=== PATIENT | male | born 1950 | race Caucasian/White ===

== ENCOUNTER 2023-05-02 06:11 | Day surgery (SDC) | payer MEDICARE, SELFPAY ==
[2023-05-02 06:30] VITALS: BMI 35.2
[2023-05-02 06:35] VITALS: BP 130/90; PULSE 86; RESP 16; TEMP 36.9; O2SAT 92
[2023-05-02] MEDS: LACTATED RINGERS 1000 ML 1,000 ML 100 ML IV (06:50)
[2023-05-02] MEDS: SODIUM CHLORIDE 0.9 % (FLUSH) 10 ML SYRINGE IVF (06:55)
[2023-05-02] MEDS: lidocaine HCL 2 % MULTIDOSE 20 ML VIAL INJECTION (07:42)
[2023-05-02] MEDS: CEFAZOLIN 1 GM inj IVP (07:50)
[2023-05-02] MEDS: BUPIVACAINE 0.25% 30 ML INJECTION (08:00)
--- NOTE | 2023-05-02 08:11 | W.ANESCHARGE ---
Anesthesia Charges Start Date/Time Anesthesia Start Date: 05/02/23 Anesthesia Start Time: 07:42 Stop Date/Time Anesthesia Stop Date: 05/02/23 Anesthesia Stop Time: 09:05 Summary Extremes of Age - Over 70 or under 1: MDA
[2023-05-02 09:00] VITALS: BP 123/86; PULSE 93; RESP 20; TEMP 36.7; O2SAT 90
--- NOTE | 2023-05-02 09:11 | W.ANESCHARGE ---
Anesthesia Charges Start Date/Time Anesthesia Start Date: 05/02/23 Anesthesia Start Time: 07:42 Stop Date/Time Anesthesia Stop Date: 05/02/23 Anesthesia Stop Time: 09:05
[2023-05-02 09:15] VITALS: BP 132/85; PULSE 78; RESP 20; O2SAT 94
[2023-05-02 09:30] VITALS: BP 120/81; PULSE 70; RESP 20; O2SAT 92
[2023-05-02 10:00] VITALS: BP 130/84; PULSE 86; RESP 20; TEMP 36.5; O2SAT 95
[2023-05-02 10:15] VITALS: BP 136/87; PULSE 89; RESP 20; O2SAT 95
--- NOTE | 2023-05-02 10:24 | P.GSOP_ITS ---
Operative Note Date of procedure: 05/02/23 Pre-op diagnosis: 1. Skin tag of right cheek 2. Skin tag of left chest 3. Large lipoma of the right upper arm Post-op diagnosis: Same Type of Procedure: 1. Excision of skin tag of right cheek 2. Excision Skin tag of left chest 3. Excision large lipoma the right upper arm Indications: Patient is a 72-year-old male presented to clinic with the above findings. Due to the symptomatic nature of these risks and benefits of operative intervention were discussed with the patient. Risks included, were not limited to: Bleedi ng, infection, risk of damage to any structures, risk of recurrence and possible need for additional procedures. Questions and concerns were addressed with patient agreeing to proceed. Procedure Description: After discussing the risks and benefits of the procedure, the patient signed informed consent.? The operative site was marked and the patient was brought to the operating room and placed on the operating table in supine position.? Care was taken to pad the patient's pressure points.?? The patient was then given sedation by anesthesia.?? The operative site was then prepped and draped in the usual sterile fashion.? A time-out was then performed. Attention was 1st directed to the skin tag of his right cheek. Betadine was used to prep the area. The area was anesthetized with 1% lidocaine. An iris scissors was used to cut the skin tag. Hemostasis was performed with silver nitrate. Dermabond and a Steri-Strip was applied to the area. Attention was then directed to the left chest. Betadine was used to prep the area. The area was anesthetized with 1% lidocaine. An iris scissors was used to cut the skin tag. Hemostasis was assured with pressure. A bandage was applied to the area. The right upper arm was then prepped and draped in sterile fashion. A large subcutaneous lipoma was identified. A vertical incision of the upper arm was made on the lateral aspect. Dissection was carried down through subcutaneous tissue. A large to, multi lobe lipoma was then encountered. The lipoma was circumferentially dissected out through blunt dissection and with electrocautery. Two small bleeding arteries were identified on the posterior aspect of the mass. The were ligated with 3-0 Vicryl ties and small clips. The mass was removed in its entirety and measured 20 x 6 x 8 cm in size. Findings were consistent with a mature lipoma. The specimen was passed off to be sent to pathology. The resulting cavity was irrigated with normal saline. Hemostasis was assured with electrocautery. The incision was then closed in layers of interrupted 2 0 Vicryl, interrupted 3 0 Vicryl and running 4-0 Monocryl subcuticular stitch. The resulting incision size was 10 cm. Steri-Strips and outer bandages were applied. An Jose R wrap was applied to allow for compression of the area. ? The patient was then woken and transported to the recovery area in stable condition. ? The patient tolerated the procedure well. Findings: Large lipoma the upper right arm. Skin tag of the right cheek and left chest. Anesthesia: MAC and local Surgeon: Abeba Christopher MD Estimated blood loss (mL): 5 Additional Specimen Information: Mass of the right upper arm. Condition: stable Disposition: same day
== END 2023-05-02 10:28 | disposition home or self-care (01) ==
PROVIDERS: PCP Physician Assistant; Visit Provider Surgery
PROC: (CPT 11200; principal; 2023-05-02 07:30)
DX: L91.8 Other hypertrophic disorders of the skin (principal); D17.21 Benign lipomatous neoplasm of skin and subcutaneous tissue of right arm
CPT/HCPCS: 11200; 24071; 00400; 82962; 88304; 88377; 99100; J0690; J2250; J2704; J3490; J7120